=== PATIENT | female | born 1980 | race Caucasian/White ===

== ENCOUNTER 2021-09-26 21:17 | Emergency (ER) | payer MEDICAID, SELFPAY ==
[2021-09-26 21:29] VITALS: BP 163/95; PULSE 90; RESP 16; TEMP 36.7; O2SAT 96; BMI 51.5
[2021-09-27] MEDS: HYDROcodone-acetaminophen 5-325 mg Tablet 1 TAB PO (01:29)
[2021-09-27] MEDS: hydrocortisone 2.5% cream 28 gm 1 APPLIC PR (01:30)
--- NOTE | 2021-09-27 01:30 | W.ED.GENADLT ---
HPI - General Adult General: Chief complaint: General Medical Stated complaint: Hemroids hurting Time Seen by Provider: 09/27/21 01:29 History of Present Illness: 41-year-old female comes in today with complaints of pressure of the on the rectum and discomfort with hemorrhoids. Patient appears nontoxic. Patient appears in mild to moderate pain. Review of Systems General: Reports: 10 or more systems reviewed and unremarkable except in HPI and below GI: Reports: rectal pain Physical Exam Const: COMMON NORMALS: alert HENMT: COMMON NORMALS: normocephalic HEAD & SCALP: normocephalic Neck/C-Spine: COMMON NORMALS: full ROM Resp: COMMON NORMALS: normal respiratory effort and clear to auscultation bilaterally AUSCULTATION: clear to auscultation bilaterally Cardio: COMMON NORMALS: regular rate RATE: regular rate GI: COMMON NORMALS: Soft to palpation and non-tender PALPATION: Yes Soft to palpation RECTAL EXAM: normal sphincter tone and External hemorrhoid(s) present (No thrombosed hemorrhoids noted.) Extremity: COMMON NORMALS: normal to inspection Neuro: SENSORIUM/ORIENTATION: Yes alert Skin: COMMON NORMALS: no rashes or lesions noted GENERAL SKIN EXAM: no rashes or lesions noted Course Vital Signs: Vital signs: Vital Signs Temperature 98.1 F 09/26/21 21:29 Pulse Rate 90 09/26/21 21:29 Respiratory Rate 16 09/26/21 21:29 Blood Pressure 163/95 09/26/21 21:29 Pulse Oximetry 96 09/26/21 21:29 [facility] - General Adult Medical Decision Making 41-year-old female comes in today with complaints of rectal discomfort due to hemorrhoids. On exam patient had some external hemorrhoids and skin tags due to hemorrhoids on the anal opening. Digital exam notice normal sphincter tone, with no palpable hemorrhoid. Differential diagnosis includes thrombosed hemorrhoid, external versus internal hemorrhoids, rectal pain. Patient does have some hemorrhoids no thrombosed hemorrhoid was noted. We will have patient follow-up with the surgeon for further evaluation and treatment. Patient was put on Anusol cortisone suppositories and was recommended to use MiraLAX and was given a few hydrocodone for severe pain. Patient reported understanding of care plan need for follow-up or return to the ER. Discharge Plan Discharge Patient Disposition: Home Clinical Impression: Hemorrhoids Qualifiers: Hemorrhoid type: unspecified Qualified Code(s): K64.9 - Unspecified hemorrhoids Condition: Stable Prescriptions: New Anusol-HC 25 mg suppository 25 mg CA TID Qty: 24 0RF hydrocodone-acetaminophen 5-325 mg tablet 1 tab PO Q6H PRN (Reason: pain) Qty: 7 0RF Miralax 17 gram/dose powder 17 g PO DAILY Qty: 238 0RF Discharge Orders: Discharge ED (Routine); Ordered 09/27/21 Ordered By: David Adamson Discharge Diet: Usual diet Discharge Activity: Increase activity as tolerated Patient Instructions: Hemorrhoids (ED), Opioid Safety Activity Restrictions/Additional Instructions: Use Anusol suppositories 1 suppository 3 times a day for the next 7 days. Make sure to keep stools soft with a stool softener such as MiraLAX 17 g daily. Use hydrocodone for severe pain. Follow-up with primary care for further instruction. Return to ER for new concerns. I will place a case management follow-up for you to see the surgeon for possible further evaluation and treatment. Coding Level of Care Code ED Duster Tender for Richard Bowden
[2021-09-27 01:36] VITALS: BP 163/95; PULSE 90; RESP 16; TEMP 36.7; O2SAT 96
--- NOTE | 2021-09-27 10:13 | DCPLANNER ---
Addendum entered by Keiko Hinkle 11/01/21 16:16: Patient had a follow up appointment scheduled for 10.17.21 with general surgery -patient did attend appointment. Addendum entered by Keiko Hinkle 10/02/21 13:04: Patient has a follow up appointment scheduled for October at 2:[address] Fields at General Surgery. Clinic will call patient with appointment information. Original Note: aquatic facility manager had message to schedule a follow up appointment for patient with general surgery. aquatic facility manager sent patients information to the front office staff at general surgery. Patients information will be printed and reviewed. Clinic will call patient with appointment information.
== END 2021-09-27 01:38 | disposition home or self-care (01) ==
PROVIDERS: Emergency Provider Nurse Practitioner Family
DX: K64.9 Unspecified hemorrhoids (principal)
CPT/HCPCS: 99283

== ENCOUNTER → 2021-10-17 14:12 | Outpatient (BNVA) | payer MEDICAID, SELFPAY | PROVIDERS: Visit Provider Surgery | DX: K64.9 Unspecified hemorrhoids (principal); K62.5 Hemorrhage of anus and rectum | CPT/HCPCS: 99203 ==

== ENCOUNTER 2021-10-28 06:02 | Day surgery (SDC) | payer MEDICAID, SELFPAY ==
[2021-10-28] VITALS (10 sets, daily range): BP systolic 134–165; BP diastolic 64–91; PULSE 69–94; RESP 16–18; TEMP 36.3–36.8; O2SAT 95–100
--- NOTE | 2021-10-28 06:11 | ANES.PREANE2 ---
Pre-Anesthetic Assessment Height/Weight: Height 1.63 m Weight 136.078 kg Preop Diagnosis: Bleeding hemorrhoids Operation Date: 10/28/21 07:00 Proposed Procedures p Hemorroidectomy and colonoscopy 45002,21845,K64.9(Not Applicable) - Mp Fields MD s Colonoscopy(Not Applicable) - Mp Fields MD Familial anesthetic complications: None Was Beta Julia taken within 24 hours: N/A Was Clonidine taken within 24 hours: N/A Social No alcohol and No tobacco Exam alert, oriented x 3, clear to auscultation bilaterally and regular rate & rhythm Airway Submandibular: within normal limits Cervical ROM: within normal limits Mallampati: Class III Dentition: full History/ROS No significant complaints Pulmonary None reported CV/HEM None reported None reported Hepatic None reported GI None reported Hemorrhoids Metabolic Morbid Obesity Musc/skel None reported Neuropsych None reported Anesthetic Plan ASA status: 3 (41 year old female with super morbid obesity and bleeding hemorrhoids ) Anesthesia: Anesthesia Evaluation and General Other: We discussed risk and benefits of general anesthesia including PONV, sore throat (sometimes severe), corneal abrasion, positioning and peripheral nerve injuries, life threatening allergic reaction, post operative ICU admission requiring prolonged intubation, stroke, heart attack, , and rare incidences of recall. Patient consents to proceed with general anesthesia. Risk of > 500 ml blood loss (7ml/kg in children): No Medications/Allergies Home Medications Medication Instructions Recorded Confirmed Last Taken Type hydrocortisone acetate 25 mg 25 mg NC TID #24 ea 09/27/21 10/25/21 Unknown Rx rectal suppository (Anusol-HC) polyethylene glycol 3350 17 17 g PO DAILY #238 grams 09/27/21 10/25/21 Unknown Rx gram/dose oral powder (Miralax) Allergies Allergy/AdvReac Type Severity Reaction Status Date / Time Sulfa (Sulfonamide Allergy ALGY-Rash Verified 10/25/21 09:12 Antibiotics) [facility] Anesthesia Social History Smoking and tobacco status: never smoked Data Anesthesia Cardiac Studies: No Data to Display
--- NOTE | 2021-10-28 06:20 | W.PM.OPSUD ---
Surgery/Procedure H&P Update DATE OF PROCEDURE: October 28, 2021 DATE H&P PERFORMED: 10/17/21 H&P UPDATE INFORMATION: I have reviewed H&P completed within last 30 days, I have examined patient prior to procedure and No changes to prior documentation PREOP DIAGNOSIS: Bleeding hemorrhoids PRIMARY INDICATION FOR PROCEDURE: The same PLANNED PROCEDURE: Operation Date: 10/28/21 07:00 Proposed Procedures p Hemorroidectomy and colonoscopy 97095,22300,K64.9(Not Applicable) - Mp Fields MD s Colonoscopy(Not Applicable) - Mp Fields MD
[2021-10-28] MEDS: acetaminophen 1,000 MG/100 ML PIGGYBACK 400 MG IV (06:21)
[2021-10-28] MEDS: sodium chloride 0.9% 1,000 ML 30 ML IV (06:21)
[2021-10-28 06:49] LABS: OR HCG Qualitative Urine Negative (Negative)
[2021-10-28] MEDS: piperacillin-tazobactam 3.375 GM in sodium chloride 0.9% (plus) 50 ML IV (07:03)
--- NOTE | 2021-10-28 07:57 | PM.OP ---
Operative Report Date of procedure: October 28, 2021 Pre-op diagnosis: Preop Diagnosis Bleeding hemorrhoids Post-op diagnosis: Diverticulosis of descending colon External hemorrhoids Procedure done: 1-Colonoscopy 2-Examination under anesthesia with hemorrhoidectomy Implants: Surgicel and Xeroform Specimens removed/disposition: Left lower lateral hemorrhoid Right lateral hemorrhoid Surgeon: Mp Fields MD Content Production Specialist: animal laboratory technician Kimmie Surgical techdiana Henao Circulating nurse Rosa Conroy Estimated blood loss (mL): 1 Procedure: Patient was identified in the holding area, was taken to the OR placed first in supine position,IV antibiotics were given with induction time-out was done verifying the patient's name, date of , and procedure, all were in agreement. Endotracheal tube was placed by the anesthesia provider, patient was placed in left lateral position. And all pressure points were padded and patient was appropriately secured to the bed. Following that a digital rectal examination was done, external hemorrhoids were appreciated. The colonoscope was then introduced via the anus under direct visualization, all the way to the cecum, prep of the colon was appropriate, there were no polyps identified or masses, there was evidence of one diverticulum towards the proximal descending colon the scope was then retrieved back ,time for withdrawal exceeded 6 minutes, gas was deflated on the way out. Retroflex was done at the end showing showed no evidence of internal hemorrhoids. CO2 gas was used for insufflation. Prep and drape of the perineum was done under the usual sterile technique All pressure points were padded.Injection of Exparel at the site of hemorrhoidectomy. A lubricated self-retaining proctoscope was inserted, Started by introducing a wet sponge to prevent any residual colon prep from contaminating the site of the excision, and under direct visualization dissecting the left lower lateral hemorrhoid tissues after application of hemostats,dissection was carried by using the harmonic scalpel, excised tissues were sent for permanent pathology, followed by running 2-0 chromic catgut. Same technique was used for the right lateral hemorrhoid and harmonic scalpel was used to excise the hemorrhoidal tissue and a running 2-0 chromic catgut was applied. The 4 x 4 was then retrieved. Hemostasis was achieved, irrigation was done,A piece of Surgicel /piece of Xeroform impregnated with lidocaine 2% jelly was placed in the anal canal, attached to 2-0 silk suture, to help retrieving it by the patient later on.ABDs were applied followed by surgical pants. Patient was repositioned to supine position, counts of instruments,needles and sponges were completed at the end of the procedure Patient was taken to the recovery area in stable condition after being extubated. I was present for the whole entire procedure
[2021-10-28] MEDS: fentaNYL 50 mcg/mL INJ 2mL IVP (08:19)
[2021-10-28] MEDS: HYDROcodone-acetaminophen 5-325 mg Tablet 1 TAB PO (09:10)
--- NOTE | 2021-10-28 09:19 | SUR.PHASEII ---
iv dilauded 0.5mg admin through iv line. when flushed through the iv, the site under venigard leaking, when checked the iv site was not good anymore and iv catheter no long in skin. med wasted in pyxis.
--- NOTE | 2021-10-28 11:55 | ANE.PACU2 ---
Inpatient post-anesthesia follow up: Airway intact: Yes Vital signs: Temperature 97.3 F Pulse Rate 69 Respiratory Rate 18 Blood Pressure 165/86 Pulse Oximetry 96 Oxygen Delivery Me thod Room Air Oxygen Flow Rate 3 Fraction of Inspir ed Oxygen Hydration adequate: Yes Nausea and vomiting: No Pain level: 7 Mental status: Baseline Additional Comments: Patient's IV came out unexpectedly. Patient elected oral medications over PIV replacement and subsequently desired to be discharged despite pain level.
== END 2021-10-28 10:00 | disposition home or self-care (01) ==
PROVIDERS: Visit Provider Surgery
PROC: (CPT 45378; principal; 2021-10-28 07:00)
PROC: 0DJD8ZZ Inspection of Lower Intestinal Tract, Via Natural or Artificial Opening Endoscopic (ICD-10-PCS; CPT 45378; 2021-10-28 07:00)
DX: K64.9 Unspecified hemorrhoids (principal); K57.30 Diverticulosis of large intestine without perforation or abscess without bleeding; E66.01 Morbid (severe) obesity due to excess calories; Z68.43 Body mass index [BMI] 50.0-59.9, adult
CPT/HCPCS: 45378; 46250; 84703; 88304; C9290; J1100; J2405; J2543; J2704; J2710; J3010; J3490; J7030

== ENCOUNTER 2021-10-31 13:51 | Emergency (ER) | payer MEDICAID, SELFPAY ==
[2021-10-31 14:10] VITALS: BP 131/78; PULSE 92; RESP 18; TEMP 36.4; O2SAT 95; BMI 51.5
--- NOTE | 2021-10-31 14:31 | W.ED.GENADLT ---
HPI - General Adult General: Chief complaint: General Medical Stated complaint: Had surgery, extreme pain Time Seen by Provider: 10/31/21 14:15 Source: patient Mode of arrival: ambulatory Limitations: no limitations History of Present Illness: This patient is here because she has significant rectal and lower pelvis pain. She states that she had a hemorrhoidectomy on Thursday. She states since since that time she is continue to have perianal pain. She states she has had some bleeding but not a significant amount. Her packing was removed at home. She states she is also had urinary urgency and is only able to urinate small amounts at a time. She denies any fevers. She denies any nausea vomiting. She states she is taken hydrocodone without much relief. Her past medical history remarkable for a low transverse but otherwise no abdominal surgeries. She states she called her surgeon but they said to expect a call within 48 hours and she says she cannot wait that long. Pain Consistency: constant Associated symptoms: Deny chest pain, dyspnea, headache(s), nausea, rash, palpitations or vomiting Review of Systems Const: Denies: fever(s) Eyes: Denies: change in vision ENMT: Denies: throat pain, odynophagia, nasal discharge or nasal congestion Card: Denies: chest pain, palpitations or irregular heart rhythm Resp: Denies: dyspnea, productive cough or non-productive cough GI: Reports: hematochezia; Denies: nausea, vomiting or melena : Reports: urinary frequency and urinary hesitancy; Denies: flank pain Musc: Denies: neck pain, back pain or extremity pain Skin/Breast: Denies: rash Neuro: Denies: headache(s), numbness in extremities or weakness in extremities Psych: Reports: anxiety Endo: Denies: polyuria or polydipsia PFS ED PFSH: Social History Smoking and tobacco status: never smoked Female Reproductive History: Date of last menstrual period: 10/29/21 Physical Exam Narrative: EXAM NARRATIVE: Patient appears uncomfortable but is cooperative during exam. She makes good eye contact. Speech is goal-directed. Const: COMMON NORMALS: patient oriented x3 and alert GENERAL APPEARANCE: anxious NUTRITIONAL APPEARANCE: obese ORIENTATION/CONSCIOUSNESS: Yes awake HENMT: COMMON NORMALS: normocephalic, Normal nasal mucous membranes and turbinates present and moist oral mucous membranes HEAD & SCALP: normocephalic NOSE: Normal nasal mucous membranes and turbinates present Eye: COMMON NORMALS: Equal, round and reactive pupils present, EOMs intact bilaterally and conjunctivae normal CONJUNCTIVA: Yes conjunctivae normal PUPIL: Yes Equal, round and reactive pupils present Neck/C-Spine: COMMON NORMALS: full ROM, no lymphadenopathy, no JVD and Thyroid normal THYROID: Thyroid normal Chest: COMMONS NORMALS: normal inspection of the chest Resp: COMMON NORMALS: normal respiratory effort, No use of accessory muscles and clear to auscultation bilaterally AUSCULTATION: clear to auscultation bilaterally Cardio: COMMON NORMALS: no JVD, regular rate, regular rhythm and Peripheral pulses 2+ throughout RATE: regular rate RHYTHM: regular rhythm PERIPHERAL PULSES: Peripheral pulses 2+ throughout GI: COMMON NORMALS: Soft to palpation and non-tender PALPATION: Yes Soft to palpation RECTAL EXAM: visual inspection normal (No bleeding. Good tone.) OTHER: Bedside ultrasound was used to visualize the pelvis. The urinary bladder appeared to be significantly distended with's with homogeneous nonechogenic fluid : COMMON NORMALS: Yes no CVA tenderness BLADDER/KIDNEY EXAM: Yes no CVA tenderness Back/Pelvis: COMMON NORMALS: no CVA tenderness, thoracic and lumbar spine normal to inspection and thoraco-lumbar ROM normal Extremity: COMMON NORMALS: normal to inspection, full ROM, no calf tenderness and no pedal edema Neuro: COMMON NORMALS: patient oriented x3, moves all extremities, no focal motor deficits and no sensory deficits noted SENSORIUM/ORIENTATION: Yes alert Psych: COMMON NORMALS: mental status grossly normal and cooperative Skin: COMMON NORMALS: no rashes or lesions noted, no wounds and turgor normal GENERAL SKIN EXAM: no rashes or lesions noted and turgor normal Course Reevaluation(s): Reevaluation #1: Patient is more comfortable. She apparently spontaneously voided and the catheter was not inserted by the nursing staff. He states that after voiding she felt better. Repeat examination reveals her to be appearing much more comfortable. She is moving with less discomfort. Repeat abdominal examination reveals no palpable masses, peritoneal signs rebound, guarding etc. Plan will be to continue therapy as recommended by Dr. Das. Time: 18:11 Consultations: Consultation #1: I discussed with her attending surgeon. He did not recommend any advanced imaging at this time. He did relate that she had rather large hemorrhoids and it would not be unexpected to her have some significant discomfort. He made some treatment recommendations once we get the Linn catheter in place and get her decompressed and we will try to utilize those in allowing her to continue her convalescence. Time: 16:59 Vital Signs: Vital signs: Vital Signs Temperature 97.5 F L 10/31/21 14:10 Pulse Rate 92 10/31/21 14:10 Respiratory Rate 16 10/31/21 16:46 Blood Pressure 131/78 10/31/21 14:10 Pulse Oximetry 95 10/31/21 14:10 MDM - General Adult Medical Decision Making Patient who is status post hemorrhoidectomy who came in with rectal pain and trismus. She also had impaired urinary emptying likely due to the same. Her examination here revealed to be clinically stable albeit uncomfortable. After analgesics and spontaneously voiding she had significantly improved. Her laboratories are reassuring and general surgeon who performed procedure was consulted who recommended some treatment plans. She is stable at this time to be continued on an outpatient basis without any evidence of ongoing emergency medical condition. Stable for discharge at this time with follow-up with surgery on Thursday. Medical Records I reviewed the patient's medical records. Lab Data I reviewed the patient's lab results. : 10/31/21 15:20 10/31/21 15:20 Laboratory Results WBC 16.0 10^3/uL (4.0-10.0) H 10/31/21 15:20 RBC 4.49 10^6/uL (4.1-5.3) 10/31/21 15:20 Hgb 11.2 g/dL (11.5-15.3) L 10/31/21 15:20 Hct 36.7 % (37.0-47.0) L 10/31/21 15:20 MCV 81.7 fl (81-99) 10/31/21 15:20 MCH 24.9 pg (28.0-34.0) L 10/31/21 15:20 MCHC 30.5 g/dL (30.0-36.0) 10/31/21 15:20 RDW 16.3 % (12.1-15.1) H 10/31/21 15:20 Plt Count 289 10^3/cmm (130-400) 10/31/21 15:20 MPV 9.9 fL (7.4-10.4) 10/31/21 15:20 Neut % (Auto) 76.7 % 10/31/21 15:20 Lymph % (Auto) 15.7 % 10/31/21 15:20 [place] % (Auto) 5.1 % 10/31/21 15:20 Eos % (Auto) 1.3 % 10/31/21 15:20 Baso % (Auto) 0.3 % 10/31/21 15:20 Neut # (Auto) 12.25 10^3/uL (1.8-7.7) H 10/31/21 15:20 Lymph # (Auto) 2.5 10^3/uL (0.8-4.8) 10/31/21 15:20 [place] # (Auto) 0.8 10^3/uL (0.2-0.9) 10/31/21 15:20 Eos # (Auto) 0.2 10^3/uL (0.0-0.8) 10/31/21 15:20 Baso # (Auto) 0.1 10^3/uL (0.0-0.1) 10/31/21 15:20 Nucleated RBC % (auto) 0 % 10/31/21 15:20 Nucleated RBCs # 0.0 /100WBC 10/31/21 15:20 Sodium 140 mmol/L (136-145) 10/31/21 15:20 Potassium 3.6 mmol/L (3.5-5.1) 10/31/21 15:20 Chloride 103 mmol/L (98-107) 10/31/21 15:20 Carbon Dioxide 26 mmol/L (22-29) 10/31/21 15:20 Anion Gap 14.6 (5-19) 10/31/21 15:20 BUN 9 mg/dL (6-20) 10/31/21 15:20 Creatinine 0.7 mg/dL (0.5-0.9) 10/31/21 15:20 GFR Calculation 93.2 mL/min (90-130) 10/31/21 15:20 Glucose 149 mg/dL (65-115) H 10/31/21 15:20 Calculated Osmolality 291 mOsm/kg (285-295) 10/31/21 15:20 Calcium 8.5 mg/dL (8.5-10.5) 10/31/21 15:20 Discharge Plan Discharge Patient Disposition: Home Clinical Impression: Post-operative pain, Rectal spasm Condition: Stable Prescriptions: New ciprofloxacin HCl 750 mg tablet 750 mg PO BID Qty: 10 0RF metronidazole [Flagyl] 375 mg capsule 375 mg PO BID 10 Days Qty: 20 0RF Valium 5 mg tablet 5 mg PO BID PRN (Reason: muscle spasm) Qty: 10 0RF No Action hydrocodone-acetaminophen 5-325 mg tablet 1 tab PO Q6H PRN (Reason: pain) Qty: 28 0RF Discharge Orders: Discharge ED (Routine); Ordered 10/31/21 Ordered By: Tiago Danielson Discharge Diet: As Directed Discharge Activity: Increase activity as tolerated Patient Instructions: Opioid Safety Activity Restrictions/Additional Instructions: Continue your diet as recommended per your surgeon. Make sure you are drinking at least 2 quarts of fluids daily. Continue the sitz bath as recommended by your surgeon. We have provided medications: 2 antibiotic medications as well as a muscle relaxant to help your symptoms. Follow-up with the surgeon on Thursday. If you have worsening symptoms to include increasing pain, fever or any concerns at any time return to this or the nearest emergency department. Coding Level of Care Code ED Diversified Crops Farmer for Richard Bowden Exam Comprehensive
[2021-10-31 15:00] VITALS: RESP 13; O2SAT 95
[2021-10-31] MEDS: morphine 4 mg/mL SDV 1 mL IVP ×2 (15:00→16:46)
[2021-10-31] MEDS: ondansetron 2 mg/ML SDV 2 mL 4 MG IVP ×2 (15:00→16:45)
[2021-10-31 15:27] LABS: Basophils # 0.1 10^3/uL (0.0-0.1); Basophils % 0.3 %; Eosinophils # 0.2 10^3/uL (0.0-0.8); Eosinophils % 1.3 %; Hematocrit 36.7 % (37.0-47.0); Hemoglobin 11.2 g/dL (11.5-15.3); Lymphocytes # 2.5 10^3/uL (0.8-4.8); Lymphocytes % 15.7 %; Mean Corpuscular HGB Conc 30.5 g/dL (30.0-36.0); Mean Corpuscular Hemoglobin 24.9 pg (28.0-34.0); Mean Corpuscular Volume 81.7 fl (81-99); Mean Platelet Volume 9.9 fL (7.4-10.4); Monocytes # 0.8 10^3/uL (0.2-0.9); Monocytes % 5.1 %; Neutrophils # 12.25 10^3/uL (1.8-7.7); Neutrophils % 76.7 %; Nucleated Red Blood Cells % 0 %; Platelet Count 289 10^3/cmm (130-400); Red Blood Count 4.49 10^6/uL (4.1-5.3); Red Cell Distribution Width 16.3 % (12.1-15.1)
[2021-10-31 15:56] LABS: Anion Gap 14.6 (5-19); Blood Urea Nitrogen 9 mg/dL (6-20); Calcium 8.5 mg/dL (8.5-10.5); Carbon Dioxide 26 mmol/L (22-29); Chloride 103 mmol/L (98-107); Creatinine Clr Calc Pharmacy 148.6213; Glomerular Filtration Rate 93.2 mL/min (90-130); Glucose 149 mg/dL (65-115); Osmolality Calculated 291 mOsm/kg (285-295); Potassium 3.6 mmol/L (3.5-5.1); Sodium 140 mmol/L (136-145)
[2021-10-31 16:46] VITALS: RESP 16
[2021-10-31] MEDS: hyoscyamine ODT 0.125 mg Tablet 0.25 MG PO (18:21)
[2021-10-31 18:44] VITALS: BP 128/57; PULSE 89; RESP 15; O2SAT 96
== END 2021-10-31 20:00 | disposition home or self-care (01) ==
PROVIDERS: Emergency Provider Emergency Medicine
DX: G89.18 Other acute postprocedural pain (principal); K59.4 Anal spasm
CPT/HCPCS: 80048; 85025; 96374; 96375; 96376; 99284; J2270; J2405

== ENCOUNTER → 2021-11-04 15:07 | Outpatient (BNVA) | payer MEDICAID, SELFPAY | PROVIDERS: Visit Provider Surgery | DX: Z98.890 Other specified postprocedural states (principal); Z87.19 Personal history of other diseases of the digestive system; G89.18 Other acute postprocedural pain; R30.0 Dysuria; K57.31 Diverticulosis of large intestine without perforation or abscess with bleeding | CPT/HCPCS: 99024 ==

== ENCOUNTER → 2022-01-27 16:36 | Outpatient (BNVA) | payer MEDICAID, SELFPAY | PROVIDERS: Visit Provider Family Medicine | DX: N92.1 Excessive and frequent menstruation with irregular cycle (principal); R53.83 Other fatigue | CPT/HCPCS: 82728; 83550; 84443; 85025 ==

== ENCOUNTER → 2022-02-12 08:50 | Outpatient (BNVA) | payer MEDICAID, SELFPAY | PROVIDERS: Visit Provider Nurse Practitioner Women's Health | DX: R10.2 Pelvic and perineal pain (principal); Z12.4 Encounter for screening for malignant neoplasm of cervix; N92.3 Ovulation bleeding | CPT/HCPCS: 87481; 87491; 87512; 87591; 87624; 87661; 87799 ==